=== PATIENT | male | born 1965 | race African-American/Black ===

== ENCOUNTER 2017-02-24 21:20 | Emergency (ER) | payer OTHER ==
--- NOTE | ~2017-02-24 | CR72 ---
[facility] A Service of [facility] & [facility] RADIOLOGY TEXT RESULTS PATIENT: DORIE RICHARDSON LOCATION: [facility] : 65 UNIT #: [id number] AGE: [address]: Alisson Rodriguez MD SEX: M ORDER DR: [id number] [facility] [address] [place], [place] [address] [id number] E MR#: [id number] #: [id number] NAME: DORIE RICHARDSON : 1965 SEX: M STUDY DATE/TIME: 02/24/2017 22:18 UNIT: [facility] ROOM: STUDY DESCRIPTION: CR Chest Single View Portable Attending Physician: Alisson Rodirguez M.D. Ordering Physician: Alisson Rodriguez M.D. Primary Care Physician: Primary Care Physician No MEDICAL IMAGING REPORT This report is preliminary unless electronic signature is present EXAM Portable chest, 02/24/2017 at 22:18 INDICATION Shortness of air with activity, memory loss, weakness, mental status changes. Symptoms started 3 days ago. FINDINGS A single AP portable view of the chest shows both lungs to be clear. The heart is normal in size. The mediastinal contour is normal. No significant bone abnormalities are seen. IMPRESSION Normal portable chest. Dictated by... Toni Palacios Jr., M.D. THIS IS AN ELECTRONICALLY VERIFIED REPORT Toni Palacios Jr., M.D. at 02/25/2017 6:02 AM PRINCE/shasha TD: 02/25/2017 05:26 JOB #: [id number] MEDICAL IMAGING REPORT Page 1 of 1 COPY
--- NOTE | ~2017-02-24 | CT71 ---
[facility] A Service of [facility] & [facility] RADIOLOGY TEXT RESULTS PATIENT: DORIE RICHARDSON LOCATION: [facility] : 65 UNIT #: [id number] AGE: [address]: Alisson Rodriguez MD SEX: M ORDER DR: [id number] [facility] [address] [place], [place] [address] [id number] E MR#: [id number] #: [id number] NAME: DORIE RICHARDSON : 1965 SEX: M STUDY DATE/TIME: 02/24/2017 22:39 UNIT: [facility] ROOM: STUDY DESCRIPTION: CT Head Wo Contrast Attending Physician: Alisson Rodriguez M.D. Ordering Physician: Alisson Rodriguez M.D. Primary Care Physician: Primary Care Physician No MEDICAL IMAGING REPORT This report is preliminary unless electronic signature is present EXAM CT head 02/24/2017 HISTORY New onset confusion 2-3 days. No injury or trauma, forgetfulness, eyes watering for 2 days. States night sweats for [address] examination was performed with one or more of the following radiation dose reduction techniques: automatic exposure control, adjustment of mA and/or kV according to patient size, and iterative reconstruction. FINDINGS CT of the head performed skull base through vertex without intravenous contrast. No prior CTs of head for comparison. The brainstem is unremarkable. The cerebellum and cerebral hemispheres show overall preservation of tony matter - white matter differentiation. No acute hemorrhage. No evidence of acute cortical ischemia. 6 mm hypodensity in the right thalamus most likely chronic lacunar infarct. Dilated perivascular space, felt less likely. Periventricular and deep white matter tract mild hypodensities likely reflecting sequelae of chronic microvascular ischemia. Midline structures are nondisplaced. No acute-appearing basal ganglia abnormality. The ventricles, cisterns and sulci are within normal limits of size and contour overall. No intra- or extraaxial mass effect or abnormal intracranial fluid collection. Visualized intraorbital soft tissues unremarkable. The visualized paranasal sinuses and mastoid air cells show mild mucosal thickening in ethmoid and sphenoid sinuses. No air-fluid levels. The bony structures show no fracture. IMPRESSION 1. No acute-appearing abnormality in the brain. If the patient has STS. [facility] A Service of [facility] & [facility] RADIOLOGY TEXT RESULTS PATIENT: DORIE RICHARDSON LOCATION: [facility] : 65 UNIT #: [id number] AGE: [address]: Alisson Rodriguez MD SEX: M ORDER DR: ongoing neurologic symptoms, consider follow up imaging, preferably with MRI if the patient is a candidate. 2. Mild periventricular and deep white matter tract probable sequelae of chronic microvascular ischemia. 3. 6 mm chronic lacunar infarct right thalamus. Dilated perivascular space could be in differential diagnosis but is felt less likely. 4. Mild mucosal thickening ethmoid air cells and sphenoid sinuses. No evidence of acute sinusitis. Dictated by... Alexandre Medina M.D. THIS IS AN ELECTRONICALLY VERIFIED REPORT Alexandre Medina M.D. at 02/28/2017 12:40 PM KEYANA/elizabeth TD: 02/25/2017 06:44 JOB #: [id number] MEDICAL IMAGING REPORT Page 1 of 1 COPY
--- NOTE | ~2017-02-24 | EKG ---
PATIENT: DORIE RICHARDSON UNIT #: [id number] Ventricular Rate: 72 BPM Atrial Rate: 72 BPM P-R Interval: 152 ms QRS Duration: 98 ms Q-T Interval: 380 ms QTC Calculation(Bezet): 416 ms P [place]: 57 degrees Calculated R [place]: 5 degrees Calculated T [place]: 51 degrees Diagnosis Line: Normal sinus rhythm Diagnosis Line: Possible Left atrial enlargement Diagnosis Line: Septal infarct , age undetermined Diagnosis Line: Abnormal ECG Diagnosis Line: No previous ECGs available Diagnosis Line: Confirmed by JONG MEANS MD ([id number]) on 02/25/2017 Diagnosis Line: 10:45:14 PM INTERPRETING MD: MIGUELANGEL ATKINSON
[~2017-02-24 21:20] MED LIST: CIPRO PO; FLAGYL PO; PHENERGAN25 MG PO; VICODIN 5/1 TAB 5/50 PO
[2017-02-24 21:28] LABS: BASOPHIL% 0.7 % (0-2.5); EOSINOPHIL# 0.2 X10e3 (0-0.7); EOSINOPHIL% 2.9 % (0.0-7.0); HEMATOCRIT 48.2 % (38.0-50.0); HEMOGLOBIN 15.6 gm/dL (13.0-16.0); LYMPHOCYTE# 1.4 X10e3 (1.0-3.5); LYMPHOCYTE% 22.7 % (17.0-45.0); MEAN CELL VOLUME 88.6 FL (83-96); MEAN CORPUSCULAR HEMOGLOBIN 28.6 PG (28-34); MEAN CORPUSCULAR HGB CONC 32.3 g/dL (30-36); MEAN PLATELET VOLUME 7.5 FL (6.5-11.5); MONOCYTE# 0.8 X10e3 (0-1.0); MONOCYTE% 13.2 % (3.0-12.0); NEUTROPHIL# 3.7 X10e3 (1.5-7.1); NEUTROPHIL% 60.5 % (40-75); PLATELET COUNT 217 X10e3 (140-420); RED BLOOD COUNT 5.44 X10e (3.90-5.60); RED CELL DISTRIBUTION WIDTH 13.3 % (11.0-15.5); WHITE BLOOD COUNT 6.1 X10e3 (4.0-10.5)
[2017-02-24 21:35] LABS: URINE SOURCE CLEAN CATCH
[2017-02-24 21:35] LABS: DIFF IND NO
[2017-02-24 21:36] LABS: POC - CKMB <1.0 ng/mL (0.0-7.9); POC - TROPONIN <0.05 ng/mL (<=0.05)
[2017-02-24 21:39] LABS: URINE APPEARANCE CLEAR; URINE BILIRUBIN NEG (NEG); URINE BLOOD TRACE (NEG); URINE COLOR YELLOW; URINE GLUCOSE NEG (NEG); URINE KETONE NEG (NEG); URINE LEUKOCYTE ESTERASE 2+ (NEG); URINE NITRATE NEG (NEG); URINE PH 5.5 (5-8); URINE PROTEIN NEG (NEG)
[2017-02-24 21:41] LABS: CULTURE INDICATED? YES; URINE BACTERIA AUWI NEG (NEGATIVE); URINE SQUAMOUS EPITHELIAL CELL NONE SEEN /[HPF]; UWBCS1 AUWI 100-200 (0-5)
[2017-02-24 21:52] LABS: ALBUMIN SERUM 4.3 g/dL (3.5-5.0); BILIRUBIN, DIRECT 0.1 mg/dL (0.0-0.2); BILIRUBIN,INDIRECT 0.3 mg/dL (0.0-0.9); BILIRUBIN,TOTAL 0.4 mg/dL (0.2-2.0); BUN/CREATININE RATIO 7.27; CALCIUM SERUM 8.8 mg/dL (8.4-10.2); CREATININE SERUM 1.1 mg/dL (0.6-1.4); GLOM FILT RATE Estimated 89.6 mL/min (>60); POTASSIUM 3.2 mmol/L (3.5-5.1); PROTEIN TOTAL SERUM 7.1 g/dL (6.0-8.3)
[2017-02-24 23:22] LABS: POC - CKMB <1.0 ng/mL (0.0-7.9); POC - TROPONIN <0.05 ng/mL (<=0.05)
[2017-02-24 23:50] LABS: AMPHETAMINE NEG (NEG); BARBITURATES NEG (NEG); BENZODIAZEPINES NEG (NEG); COCAINE POS (NEG); MARIJUANA POS (NEG); OPIATES NEG (NEG); TRICYCLIC ANTIDEPRESSANTS NEG (NEG); U METHADONE NEG (NEG)
== END 2017-02-25 00:20 | disposition home or self-care (01) ==
LOC: CED 21:20
PROVIDERS: Emergency Medicine
DX: N39.0 Urinary tract infection, site not specified (principal); F19.10 Other psychoactive substance abuse, uncomplicated; Z90.49 Acquired absence of other specified parts of digestive tract
CPT/HCPCS: 36415; 70450; 71010; 80048; 80076; 80307; 81003; 82553; 82947; 84484; 85025; 87086; 93005; 99284